=== PATIENT | female | born 1955 | race Caucasian/White ===

== ENCOUNTER 2016-10-14 15:55 | Emergency (ER) | payer MEDICARE ==
[~2016-10-14] VITALS: Ht 154.9 cm; Wt 100.7 kg
--- NOTE | 2016-10-14 17:12 | RAD ---
Indication leg pain. Grayscale color Doppler and spectral imaging was performed. Examination was targeted to the veins of the left lower extremity. The common femoral, femoral and popliteal vessels demonstrate normal flow compressibility and augmentation. No thrombus is seen. Visualized calf veins appeared unremarkable. The right common femoral vein also appeared normal. IMPRESSION: Negative left lower extremity venous analysis for DVT
[2016-10-14] MEDS ORDERED: BUDE3CAP2 PO (17:35)
[2016-10-14] MEDS ORDERED: HYDR25TA9 PO (17:37)
[2016-10-14] MEDS ORDERED: PARO20TA2 PO (17:37)
[2016-10-14] MEDS ORDERED: CHOL2000 PO (17:40)
[2016-10-14] MEDS ORDERED: MAGN250T PO (17:40)
[2016-10-14] MEDS ORDERED: B&C/1TAB2 PO (17:40)
[2016-10-14] MEDS ORDERED: [UNRECOGNIZED DRUG - OTHER] (17:40)
[2016-10-14] MEDS ORDERED: OREG1500 PO (17:40)
[2016-10-14 17:47] VITALS: BP 127/72
--- NOTE | 2016-10-14 18:00 | PHYS DOC ---
Past Medical History Past Medical History: Anxiety, Other Additional Past Medical Histor: Psoriatic arthritis Past Surgical History: , Other Additional Past Surgical Histo: D&C x5,Miscarriage x3,Kidney stones Alcohol Use: None Drug Use: None Adult General Chief Complaint Chief Complaint: LOWER EXT PAIN [facility] HPI 61-year-old female who presents with some left upper 5 swelling that's been there for the last several days. Patient was seen by her primary doctor for this and recommended to follow with vascular surgery as well as come to the ER for a ultrasound. She denies any history of DVT. She does state she has history of lupus for which she is on the biologic therapy with Humira. She denies any chest pain or shortness of breath. She denies any redness to the area. She denies any trauma. Review of Systems Review of Systems Constitutional: Denies fever or chills [] Eyes: Denies change in visual acuity, redness, or eye pain [] HENT: Denies nasal congestion or sore throat [] Respiratory: Denies cough or shortness of breath [] Cardiovascular: No additional information not addressed in HPI [] GI: Denies abdominal pain, nausea, vomiting, bloody stools or diarrhea [] : Denies dysuria or hematuria [] Musculoskeletal: Denies back pain, has joint pain [] Integument: Denies rash or skin lesions [] Neurologic: Denies headache, focal weakness or sensory changes [] Endocrine: Denies polyuria or polydipsia [] Allergies Allergies Allergies Coded Allergies Type Severity Reaction Last Updated Verified NSAIDS (Non-Steroidal Anti-Inflamma Allergy Severe Throat swells, Hives. Yes Penicillins Allergy Severe Throat swells. 10/14/16 Yes Sulfa (Sulfonamide Antibiotics) Allergy Severe Throat swells. 10/14/16 Yes aspirin Allergy Severe Throat swells. 10/14/16 Yes Estrogens Allergy Intermediate "hormone replacement therapy", rash, pain all over 10/14/16 No codeine Allergy Unknown Increased HR 10/14/16 Yes Physical Exam Physical Exam Constitutional: Well developed, well nourished, no acute distress, non-toxic appearance. [] HENT: Normocephalic, atraumatic, bilateral external ears normal, oropharynx moist, no oral exudates, nose normal. [] Eyes: PERRLA, EOMI, conjunctiva normal, no discharge. [] Neck: Normal range of motion, no tenderness, supple, no stridor. [] Cardiovascular:Heart rate regular rhythm, no murmur [] Lungs & Thorax: Bilateral breath sounds clear to auscultation [] Abdomen: Bowel sounds normal, soft, no tenderness, no masses, no pulsatile masses. [] Skin: Warm, dry, no erythema, no rash. [] Back: No tenderness, no CVA tenderness. [] Extremities: Moderate tenderness to the left upper thigh with a noted area of swelling, there is no redness or fluctuance, no cyanosis, no clubbing, ROM intact, no edema. [] Neurologic: Alert and oriented X 3, normal motor function, normal sensory function, no focal deficits noted. [] Psychologic: Affect normal, judgement normal, mood normal. [] Current Patient Data Vital Signs Vital Signs Date Time Temp Pulse Resp B/P Pulse Ox O2 Delivery O2 Flow Rate FiO2 10/14/16 17:47 84 18 127/72 97 Room Air 10/14/16 16:25 98.1 98.1 EKG EKG [] Radiology/Procedures Radiology/Procedures Left lower extremity venous doppler demonstrated the following: Grayscale color Doppler and spectral imaging was performed. Examination was targeted to the veins of the left lower extremity. The common femoral, femoral and popliteal vessels demonstrate normal flow compressibility and augmentation. No thrombus is seen. Visualized calf veins appeared unremarkable. The right common femoral vein also appeared normal. Course & Med Decision Making Course & Med Decision Making Pertinent Labs and Imaging studies reviewed. (See chart for details) 61-year-old female had a negative venous Doppler of her left lower extremity for any acute DVT. There is no evidence of any cellulitis. There is no indication at this time to perform any laboratory workup. I will be discharging her to follow closely with her primary doctor and delivery consultant for further workup for her upper thigh swelling. Dragon Disclaimer Dragon Disclaimer This electronic medical record was generated, in whole or in part, using a voice recognition dictation system. Departure Departure Impression: Primary Impression: Left leg swelling Disposition: HOME, SELF-CARE Condition: STABLE Referrals: JONO CATHERINE (PCP) Additional Instructions: Please follow with your delivery consultant as discussed and your primary care doctor for your lower extremity swelling. Continue taking your medications as prescribed. Return to the ER if you develop any increased redness or pain or develop any chest pain or shortness of breath. ISI HICKMAN DO Oct 14, 2016 18:00
== END 2016-10-14 18:04 | disposition home or self-care (01) ==
LOC: ER 15:55
DX: M79.89 Other specified soft tissue disorders (principal); M32.9 Systemic lupus erythematosus, unspecified; F41.9 Anxiety disorder, unspecified; L40.50 Arthropathic psoriasis, unspecified; Z88.0 Allergy status to penicillin; Z88.6 Allergy status to analgesic agent; Z88.5 Allergy status to narcotic agent; Z88.2 Allergy status to sulfonamides; Z88.8 Allergy status to other drugs, medicaments and biological substances
CPT/HCPCS: 93971; 99284-25

== ENCOUNTER 2016-12-15 15:27 | Emergency (ER) | payer MEDICARE ==
[~2016-12-15] VITALS: Ht 154.9 cm; Wt 100.7 kg
[~2016-12-15 15:27] MED LIST: B&C/1TAB2 PO; BUDE3CAP2 PO; CHOL2000 PO; HYDR25TA9 PO; MAGN250T PO; OREG1500 PO; PARO20TA3 PO; [UNRECOGNIZED DRUG - OTHER]
[2016-12-15 15:40] VITALS: BP 140/88
[2016-12-15] MEDS ORDERED: DOXY100C2 PO (15:56)
--- NOTE | 2016-12-15 15:59 | PHYS DOC ---
Past Medical History Past Medical History: Anxiety, Other Additional Past Medical Histor: Psoriatic arthritis Past Surgical History: , Other Additional Past Surgical Histo: D&C x5,Miscarriage x3,Kidney stones Alcohol Use: None Drug Use: None Adult General Chief Complaint Chief Complaint: ANIMAL BITE [facility] HPI Patient is a 61 year old female presents to the emergency department stating at 1500 today her 3 month old puppy bit her on the right hand. Patient states the puppies immunizations are up to date. She states has very thin skin and the bite is very close to the vein and she was worried about bleeding. She is unsure when her last tetanus immunization occurred. Patient denies numbness, tingling, or difficulty moving hand and fingers. Bleeding is currently controlled. Patient is left hand dominant. Review of Systems Review of Systems Constitutional: Denies fever or chills [] Eyes: Denies change in visual acuity, redness, or eye pain [] HENT: Denies nasal congestion or sore throat [] Respiratory: Denies cough or shortness of breath [] Cardiovascular: No additional information not addressed in HPI [] GI: Denies abdominal pain, nausea, vomiting, bloody stools or diarrhea [] : Denies dysuria or hematuria [] Musculoskeletal: Denies back pain or joint pain [] Integument: Denies rash or skin lesions. Dog bite to right hand Neurologic: Denies headache, focal weakness or sensory changes [] Current Medications Current Medications Current Medications Medications (Trade) Dose Ordered Sig/Nakul Start Time Stop Time Status Last Admin Dose Admin Diphtheria/ Tetanus/Acell Pertussis (Boostrix) 0.5 ml ONCE ONCE 12/15/16 16:00 12/15/16 16:01 DC 12/15/16 16:19 0.5 ML Neomycin/ Polymyxin/ Bacitracin (Triple Antibiotic Ointment) 1 pkt 1X ONCE 12/15/16 16:00 12/15/16 16:01 DC 12/15/16 16:16 1 PKT Allergies Allergies Allergies Coded Allergies Type Severity Reaction Last Updated Verified NSAIDS (Non-Steroidal Anti-Inflamma Allergy Severe Throat swells, Hives. Yes Penicillins Allergy Severe Throat swells. 10/14/16 Yes Sulfa (Sulfonamide Antibiotics) Allergy Severe Throat swells. 10/14/16 Yes aspirin Allergy Severe Throat swells. 10/14/16 Yes Estrogens Allergy Intermediate "hormone replacement therapy", rash, pain all over 10/14/16 No codeine Allergy Unknown Increased HR 10/14/16 Yes Physical Exam Physical Exam Constitutional: Well developed, well nourished, no acute distress, non-toxic appearance. [] HENT: Normocephalic, atraumatic, bilateral external ears normal, oropharynx moist, no oral exudates, nose normal. [] Eyes: PERRLA, EOMI, conjunctiva normal, no discharge. [] Neck: Normal range of motion, no tenderness, supple, no stridor. [] Cardiovascular:Heart rate regular rhythm, no murmur [] Lungs & Thorax: Bilateral breath sounds clear to auscultation [] Skin: Warm, dry, no erythema, no rash. One wound noted to the back of the right hand with bleeding controlled. No tenderness, redness or drainage noted. Back: No tenderness Extremities: No tenderness, no cyanosis, no clubbing, ROM intact, no edema. [] Neurologic: Alert and oriented X 3, normal motor function, normal sensory function, no focal deficits noted. [] Psychologic: Affect normal, judgement normal, mood normal. [] Current Patient Data Vital Signs Vital Signs Date Time Temp Pulse Resp B/P Pulse Ox O2 Delivery O2 Flow Rate FiO2 12/15/16 15:40 98.1 98 16 95 Room Air 98.1 EKG EKG [] Radiology/Procedures Radiology/Procedures [facility] [address] [place] [address] IMAGING REPORT Signed PATIENT: BECCA WASHINGTON ACCOUNT: [id number] : 1955 LOCATION: ER AGE: 61 SEX: F EXAM STATUS: REG ER ORD. PHYSICIAN: JENNIFER CASTRO APRN REASON: dog bite to the hand at 1500 today PROCEDURE: HAND RIGHT 3V Right hand, 3 views, 12/15/2016: History: Dog bite, pain There are degenerative changes at scattered interphalangeal joints and the first CMC joint. No acute fracture or dislocation is identified.. The soft tissues are unremarkable. IMPRESSION: No acute bony abnormality is detected. DICTATED and SIGNED BY: JOSE SEPULVEDA MD DATE: 12/15/16 1616 CC: JENNIFER CASTRO APRN; JONO CATHERINE ~ [] Course & Med Decision Making Course & Med Decision Making Pertinent Labs and Imaging studies reviewed. (See chart for details) Shunt x-ray was negative for any bony abnormalities no foreign body noted. Site was cleaned with soap and water irrigated with water here in the emergency department with antibiotic ointment placed over the area. Tetanus was updated. Patient will be placed on antibiotics at discharged. Signs and symptoms of infection provided to patient. Signs and symptoms to return to the emergency department has been provided. Patient will be discharged home in stable condition. [] Dragon Disclaimer Dragon Disclaimer This electronic medical record was generated, in whole or in part, using a voice recognition dictation system. Departure Departure Impression: Primary Impression: Dog bite of right hand Disposition: HOME, SELF-CARE Condition: STABLE Referrals: JONO CATHERINE (PCP) Patient Instructions: Animal Bite, [id number] Additional Instructions: Activity as tolerated Tylenol for pain and discomfort Medication as prescribed Ice packs on 20 minutes and off 20 minutes several times a day Elevation as much as possible Clean the site with soap and water twice a day and apply antibiotic to the site Watch for signs and symptoms of infection: redness, warmth, tenderness or any any yellow/greenish drainage that may come the site. If this should happen follow up with primary care provider immediately Return to the emergency department as needed for signs and symptoms that become worse. Scripts Doxycycline Hyclate 100 Mg Capsule1 Cap PO BID #14 CAP Prov:JENNIFER CASTRO APRN 12/15/16 JENNIFER CASTRO APRN Dec 15, 2016 15:59
[2016-12-15] MEDS ORDERED: NEOMY/BACITR/POLYMYXIN OINT PACKET. TP ONE (16:00)
[2016-12-15] MEDS ORDERED: DIPHTH,PERTUSS(ACELL),TET TOX 0.5 ML DISP.SYRIN. VAX IM ONE (16:00)
--- NOTE | 2016-12-15 16:20 | RAD ---
Right hand, 3 views, 12/15/2016: History: Dog bite, pain There are degenerative changes at scattered interphalangeal joints and the first CMC joint. No acute fracture or dislocation is identified.. The soft tissues are unremarkable. IMPRESSION: No acute bony abnormality is detected.
== END 2016-12-15 16:25 | disposition home or self-care (01) ==
LOC: ER 15:27
DX: S61.451A Open bite of right hand, initial encounter (principal); L40.50 Arthropathic psoriasis, unspecified; Z88.0 Allergy status to penicillin; Z88.2 Allergy status to sulfonamides; W54.0XXA Bitten by dog, initial encounter; Y93.89 Activity, other specified; Y99.8 Other external cause status; Y92.89 Other specified places as the place of occurrence of the external cause
CPT/HCPCS: 73130; 90471; 90715; 99284-25

== ENCOUNTER 2019-03-06 12:29 | Emergency (ER) | payer MEDICARE ==
[~2019-03-06] VITALS: Ht 167.6 cm; Wt 100.7 kg
[~2019-03-06 12:29] MED LIST changes: +DOXY100C2 PO; +HYDR-2145 PO; -HYDR25TA9 PO; -MAGN250T PO; +MAGN250T2 PO
[2019-03-06] MEDS ORDERED: IV NORMAL SALINE 1000ML BAG 1,000 ML IV ONE (13:30)
[2019-03-06] MEDS ORDERED: DICYCLOMINE 20 MG/2 ML AMPUL. IM ONE (13:30)
[2019-03-06] MEDS ORDERED: fentaNYL PF VIAL 100 MCG/2 ML VIAL IV ONE (13:30)
[2019-03-06] MEDS ORDERED: ONDANSETRON PF 4 MG/2 ML VIAL. IV ONE ×2 (13:30→17:15)
--- NOTE | 2019-03-06 13:36 | PHYS DOC ---
Past Medical History Past Medical History: Anxiety, Other Additional Past Medical Histor: Psoriatic arthritis Past Surgical History: , Other Additional Past Surgical Histo: D&C x5,Miscarriage x3,Kidney stones Alcohol Use: None Drug Use: None Adult General Chief Complaint Chief Complaint: NAUSEA/VOMITING/[facility] HPI 63-year-old female presents to ER for complaints of sudden onset of vomiting and diarrhea around 12 AM. Patient reports she's had multiple episodes of vomiting and diarrhea throughout today. She denies bloody stools or emesis. She felt feverish but is currently afebrile at 98.3. 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 Patient denies other family members with similar illness but does report her dog had Giardia week and a half ago. Patient reports mid epigastric abdominal pain at 5 out of 10 denies pain radiation. Patient denies recent travel. Patient denies smoking or alcohol history. Patient reports she is scheduled for colonoscopy 04/12/19. Review of Systems Review of Systems Constitutional: Reports felt feverish with generalized fatigue Eyes: Denies change in visual acuity, redness, or eye pain [] HENT: Denies nasal congestion or sore throat [] Respiratory: Denies cough or shortness of breath [] Cardiovascular: Denies chest pain or palpitations GI: Denies bloody stools/emesis. Reports mid epig. abd pain with N/V/D : Denies dysuria or hematuria [] Musculoskeletal: Denies back pain or joint pain [] Integument: Denies rash or skin lesions [] Neurologic: Denies headache, focal weakness or sensory changes [] Endocrine: Denies polyuria or polydipsia [] All other systems were reviewed and found to be within normal limits, except as documented in this note. Current Medications Current Medications Current Medications Medications (Trade) Dose Ordered Sig/Nakul Start Time Stop Time Status Last Admin Dose Admin Dicyclomine HCl (Bentyl) 20 mg 1X ONCE 03/06/19 13:30 03/06/19 13:34 DC 03/06/19 14:43 20 MG Fentanyl Citrate (Fentanyl 2ml Vial) 25 mcg 1X ONCE 03/06/19 13:30 03/06/19 13:34 DC 03/06/19 14:43 25 MCG Info (CONTRAST GIVEN -- Rx MONITORING) 1 each PRN DAILY PRN 03/06/19 16:45 03/08/19 16:44 Iohexol (Omnipaque 300 Mg/ml) 75 ml 1X ONCE 03/06/19 16:45 03/06/19 16:46 DC 03/06/19 16:44 75 ML Ondansetron HCl (Zofran) 4 mg 1X ONCE 03/06/19 17:15 03/06/19 17:16 DC Sodium Chloride 500 ml @ 500 mls/hr 1X ONCE 03/06/19 16:15 03/06/19 17:14 DC 03/06/19 16:36 500 MLS/HR Allergies Allergies Allergies Coded Allergies Type Severity Reaction Last Updated Verified NSAIDS (Non-Steroidal Anti-Inflamma Allergy Severe Throat swells, Hives. 10/14/16 Yes Penicillins Allergy Severe Throat swells. 10/14/16 Yes Sulfa (Sulfonamide Antibiotics) Allergy Severe Throat swells. 10/14/16 Yes aspirin Allergy Severe Throat swells. 10/14/16 Yes Estrogens Allergy Intermediate "hormone replacement therapy", rash, pain all over 10/14/16 No codeine Allergy Unknown Increased HR 10/14/16 Yes Physical Exam Physical Exam Constitutional: Well developed, well nourished, no acute distress, non-toxic appearance. Fatigued appearance HENT: Normocephalic, atraumatic, bilateral external ears normal, mucous membranes pink/dry, no oral exudates, nose normal. [] Eyes: Pupils equal, conjunctiva normal, no discharge. [] Neck: Normal range of motion, no tenderness, supple, no stridor. [] Cardiovascular: Heart rate regular rhythm, no murmur [] Lungs & Thorax: Bilateral breath sounds clear to auscultation- resp. equal/nonlabored Abdomen: Bowel sounds normal, soft-no distention/rigidity- diffuse tenderness all abd w/increased pain lt side upper/rt lower, no masses, no pulsatile masses. [] Skin: Warm, dry, no erythema, no rash. [] Back: No tenderness, no CVA tenderness. [] Extremities: No tenderness, no cyanosis, no clubbing, ROM intact, no edema. [] Neurologic: Alert and oriented X 3, normal motor function, normal sensory function, no focal deficits noted. [] Psychologic: Affect normal, judgement normal, mood normal. [] Current Patient Data Vital Signs Vital Signs Date Time Temp Pulse Resp B/P (MAP) Pulse Ox O2 Delivery O2 Flow Rate FiO2 03/06/19 16:40 101 27 106/51 (69) 96 Room Air 03/06/19 13:30 98.3 98.3 Lab Values Laboratory Tests Test 03/06/19 14:35 White Blood Count 7.9 x10^3/uL (4.0-11.0) Red Blood Count 4.56 x10^6/uL (3.50-5.40) Hemoglobin 13.9 g/dL (12.0-15.5) Hematocrit 41.0 % (36.0-47.0) Mean Corpuscular Volume 90 fL (79-100) Mean Corpuscular Hemoglobin 31 pg (25-35) Mean Corpuscular Hemoglobin Concent 34 g/dL (31-37) Red Cell Distribution Width 13.9 % (11.5-14.5) Platelet Count 264 x10^3/uL (140-400) Neutrophils (%) (Auto) 89 % (31-73) H Lymphocytes (%) (Auto) 4 % (24-48) L Monocytes (%) (Auto) 7 % (0-9) Eosinophils (%) (Auto) 0 % (0-3) Basophils (%) (Auto) 0 % (0-3) Neutrophils # (Auto) 7.0 x10^3uL (1.8-7.7) Lymphocytes # (Auto) 0.3 x10^3/uL (1.0-4.8) L Monocytes # (Auto) 0.5 x10^3/uL (0.0-1.1) Eosinophils # (Auto) 0.0 x10^3/uL (0.0-0.7) Basophils # (Auto) 0.0 x10^3/uL (0.0-0.2) Segmented Neutrophils % 89 % (35-66) H Band Neutrophils % 1 % (0-9) Lymphocytes % 5 % (24-48) L Monocytes % 5 % (0-10) Platelet Estimate Adequate (ADEQUATE) Polychromasia Slight Anisocytosis Slight Sodium Level 141 mmol/L (136-145) Potassium Level 3.5 mmol/L (3.5-5.1) Chloride Level 104 mmol/L (98-107) Carbon Dioxide Level 27 mmol/L (21-32) Anion Gap 10 (6-14) Blood Urea Nitrogen 13 mg/dL (7-20) Creatinine 0.4 mg/dL (0.6-1.0) L Estimated GFR (Cockcroft-Gault) 160.7 BUN/Creatinine Ratio 33 (6-20) H Glucose Level 107 mg/dL (70-99) H Lactic Acid Level 0.9 mmol/L (0.4-2.0) Calcium Level 8.7 mg/dL (8.5-10.1) Magnesium Level 1.8 mg/dL (1.8-2.4) Total Bilirubin 0.5 mg/dL (0.2-1.0) Aspartate Amino Transferase (AST) 15 U/L (15-37) Alanine Aminotransferase (ALT) 23 U/L (14-59) Alkaline Phosphatase 67 U/L (46-116) Troponin I Quantitative < 0.017 ng/mL (0.000-0.055) Total Protein 6.5 g/dL (6.4-8.2) Albumin 3.3 g/dL (3.4-5.0) L Albumin/Globulin Ratio 1.0 (1.0-1.7) Lipase 63 U/L (73-393) L Laboratory Tests 03/06/19 14:35 Laboratory Tests 03/06/19 14:35 EKG EKG EKG obtained 03/06/19 at [address] Villarreal Sinus rhythm Ltward axis Nonspec. T wave abnorm Rate 95 No STEMI Radiology/Procedures Radiology/Procedures PROCEDURE: CT ABD PELV W/ IV CONTRST ONLY CT ABD PELV W/ IV CONTRST ONLY Indication: Abdominal pain. History of colitis. Exposure: One or more of the following individualized dose reduction techniques were utilized for this examination: 1. Automated exposure control 2. Adjustment of the mA and/or kV according to patient size 3. Use of iterative reconstruction technique. Technique: Intravenous contrast was given. No oral contrast per request. No comparison is barely available FINDINGS: Mild atelectasis or fibrosis in the lung bases. Right lobe of liver is elongated, 20 cm. No focal hepatic lesion. Spleen not enlarged. Pancreas appears unremarkable. No evidence of adrenal mass. Kidneys demonstrate symmetric enhancement. Hypodense lesions of the left kidney are identified. All 3 measure between 13 and 15 Hounsfield units. No significant hydronephrosis. Tiny right renal lesion is too small to characterize. Tiny nonobstructive right lower pole renal calculus. Gallbladder surgically absent. Aorta demonstrates no aneurysm or dissection. No significant lymph node enlargement. Mild distention of small bowel loops with fluid. There is also fluid density in the colon. No evidence of colonic wall thickening or pericolonic inflammatory stranding to suggest an acute colitis. Appendix is not clearly visualized. No evidence of ascites or pneumoperitoneum. No evidence of pelvic mass. Urinary bladder appears unremarkable. Degenerative spondylosis of the spine. No destructive bone lesion. IMPRESSION: 1. Mild fluid distention of bowel, may represent an ileus. No convincing evidence of obstruction or colitis at this time. Recommend follow-up abdominal radiographs or CT if symptoms persist. 2. No mild hepatomegaly. 3. Multiple renal lesions, the larger of which are consistent with cysts. 4 tiny nonobstructive right renal calculus.. Electronically signed by: Pako Felix MD (03/06/2019 5:04 PM) [id number] DICTATED and SIGNED BY: PAKO FELIX MD DATE: 03/06/19 170 Course & Med Decision Making Course & Med Decision Making Pertinent Labs and Imaging studies reviewed. (See chart for details) 1710: Discussed CT results with patient and her . Admission was discussed and offered for further care and monitoring-patient is preferring home discharge with plans to follow-up with her GI doctor outpatient for reevaluation and further care. Dragon Disclaimer Dragon Disclaimer This electronic medical record was generated, in whole or in part, using a voice recognition dictation system. Departure Departure Impression: Primary Impression: Abdominal pain, vomiting, and diarrhea Disposition: 01 HOME, SELF-CARE Condition: STABLE Referrals: JONO CATHERINE (PCP) Patient Instructions: Abdominal Pain, Diarrhea, Nausea and Vomiting Additional Instructions: Drink plenty of fluids. Advance diet as tolerated. Call and schedule follow-up appointment with your gastrointestinal doctor for reevaluation and further care. Scripts Dicyclomine Hcl (DICYCLOMINE HCL) 10 Mg Capsule 1 CAP PO PRN Q6HRS PRN for PAIN, #12 CAP 0 Refills Prov: QUEKadeemINDIO SPECIAL PROCEDURE TECHNOLOGIST 03/06/19 Ondansetron (ONDANSETRON ODT) 4 Mg Tab.rapdis 1 TAB PO PRN Q6-8HRS PRN for NAUSEA, #10 TAB 0 Refills Prov: INDIO SALMON APRN 03/06/19 INDIO SALMON APRN Mar 06, 2019 13:36
--- NOTE | 2019-03-06 14:30 | EKG ---
[facility] [address] [place] [address] Test Date: 2019-03-06 Test Time: 13:50:48 Pat Name: BECCA WASHINGTON Department: Room: Gender: F Milling Machine Operator: : 1955 Requested By: INDIO SALMON Order Number: [id number] Reading MD: Measurements Intervals [place] Rate: 94 P: 55 AL: 160 QRS: -19 QRSD: 96 T: 36 QT: 358 QTc: 453 Interpretive Statements SINUS RHYTHM LEFTWARD AXIS NON SPECIFIC T ABNORMALITY BORDERLINE ECG No previous ECG available for comparison
[2019-03-06 14:48] LABS: BASO % 0 % (0-3); EOS % 0 % (0-3); HEMOGLOBIN 13.9 g/dL (12.0-15.5); LYMPH # 0.3 x10^3/uL (1.0-4.8); LYMPH % 4 % (24-48); MEAN CORPUSCULAR HEMOGLOBIN 31 pg (25-35); MEAN CORPUSCULAR HGB CONC 34 g/dL (31-37); MEAN CORPUSCULAR VOLUME 90 fL (79-100); MONO # 0.5 x10^3/uL (0.0-1.1); MONO % 7 % (0-9); NEUT % 89 % (31-73); PLATELET COUNT 264 x10^3/uL (140-400); RED BLOOD COUNT 4.56 x10^6/uL (3.50-5.40); RED CELL DISTRIBUTION WIDTH 13.9 % (11.5-14.5); WHITE BLOOD COUNT 7.9 x10^3/uL (4.0-11.0)
[2019-03-06 15:03] LABS: CALCIUM 8.7 mg/dL (8.5-10.1); CREATININE 0.4 mg/dL (0.6-1.0); GFR 160.7; POTASSIUM 3.5 mmol/L (3.5-5.1)
[2019-03-06 15:09] LABS: ALBUMIN 3.3 g/dL (3.4-5.0); MAGNESIUM 1.8 mg/dL (1.8-2.4); TOTAL BILIRUBIN 0.5 mg/dL (0.2-1.0); TOTAL PROTEIN 6.5 g/dL (6.4-8.2)
[2019-03-06] MEDS ORDERED: IV NORMAL SALINE 500ML BAG 500 ML IV ONE (16:15)
[2019-03-06 16:20] LABS: % BANDS 1 % (0-9); % LYMPHS 5 % (24-48); % MONOS 5 % (0-10); % SEGS 89 % (35-66)
[2019-03-06 16:21] LABS: ANISOCYTOSIS SLIGHT; PLT ESTIMATE ADEQUATE (ADEQUATE); POLYCHROMASIA SLIGHT
[2019-03-06] MEDS ORDERED: IOHEXOL 300 MG/ML 100ML VIAL. IV ONE (16:45)
[2019-03-06] MEDS ORDERED: CONTRAST GIVEN. MC PRN (16:45)
--- NOTE | 2019-03-06 17:07 | RAD ---
CT ABD PELV W/ IV CONTRST ONLY Indication: Abdominal pain. History of colitis. Exposure: One or more of the following individualized dose reduction techniques were utilized for this examination: 1. Automated exposure control 2. Adjustment of the mA and/or kV according to patient size 3. Use of iterative reconstruction technique. Technique: Intravenous contrast was given. No oral contrast per request. No comparison is barely available FINDINGS: Mild atelectasis or fibrosis in the lung bases. Right lobe of liver is elongated, 20 cm. No focal hepatic lesion. Spleen not enlarged. Pancreas appears unremarkable. No evidence of adrenal mass. Kidneys demonstrate symmetric enhancement. Hypodense lesions of the left kidney are identified. All 3 measure between 13 and 15 Hounsfield units. No significant hydronephrosis. Tiny right renal lesion is too small to characterize. Tiny nonobstructive right lower pole renal calculus. Gallbladder surgically absent. Aorta demonstrates no aneurysm or dissection. No significant lymph node enlargement. Mild distention of small bowel loops with fluid. There is also fluid density in the colon. No evidence of colonic wall thickening or pericolonic inflammatory stranding to suggest an acute colitis. Appendix is not clearly visualized. No evidence of ascites or pneumoperitoneum. No evidence of pelvic mass. Urinary bladder appears unremarkable. Degenerative spondylosis of the spine. No destructive bone lesion. IMPRESSION: 1. Mild fluid distention of bowel, may represent an ileus. No convincing evidence of obstruction or colitis at this time. Recommend follow-up abdominal radiographs or CT if symptoms persist. 2. No mild hepatomegaly. 3. Multiple renal lesions, the larger of which are consistent with cysts. 4 tiny nonobstructive right renal calculus.. Electronically signed by: Pako Felix MD (03/06/2019 5:04 PM) [id number]
[2019-03-06] MEDS ORDERED: ONDA4TAB12 PO (17:30)
[2019-03-06] MEDS ORDERED: DICY10CA3 PO (17:30)
[2019-03-06 17:34] VITALS: BP 110/47
== END 2019-03-06 17:39 | disposition home or self-care (01) ==
LOC: ER 12:29
DX: R11.2 Nausea with vomiting, unspecified (principal); R19.7 Diarrhea, unspecified; R10.13 Epigastric pain; L40.50 Arthropathic psoriasis, unspecified; F41.9 Anxiety disorder, unspecified; Z87.442 Personal history of urinary calculi; Z88.0 Allergy status to penicillin; Z88.2 Allergy status to sulfonamides; Z88.5 Allergy status to narcotic agent; Z88.6 Allergy status to analgesic agent; Z88.8 Allergy status to other drugs, medicaments and biological substances
CPT/HCPCS: 36415; 74177; 80053; 83605; 83690; 83735; 84484; 85007; 85025; 93005; 96361; 96372; 96374; 96375; 96376; 99285; J0500; J2405; J3010; J7030; J7040; Q9967

== ENCOUNTER 2019-05-22 17:42 | Emergency (ER) | payer MEDICARE ==
[~2019-05-22] VITALS: Ht 152.4 cm; Wt 93.9 kg
[~2019-05-22 17:42] MED LIST changes: +DICY10CA3 PO; +ONDA4TAB12 PO
[2019-05-22] MEDS ORDERED: MORPHINE SULFATE 4 MG/ML VIAL. IM STA (18:24)
--- NOTE | 2019-05-22 18:28 | PHYS DOC ---
Past Medical History Past Medical History: Anxiety, Other Additional Past Medical Histor: Psoriatic arthritis, LUPUS, MICROSCOPIC COLOLITIS Past Surgical History: , Other Additional Past Surgical Histo: D&C x5,Miscarriage x3,Kidney stones Alcohol Use: None Drug Use: None Adult General Chief Complaint Chief Complaint: MECHANICAL FALL HPI HPI Patient is a 63 year old female who presents after tripping over some books partially 1.5 hours ago. The patient states she's having right arm pain from shoulder down to wrist, and right knee pain. The patient rates her pain as 10 out of 10 severity. Has not taken any medicines prior to arrival. Review of Systems Review of Systems Constitutional: Denies fever or chills [] Eyes: Denies change in visual acuity, redness, or eye pain [] HENT: Denies nasal congestion or sore throat [] Respiratory: Denies cough or shortness of breath [] Cardiovascular: No additional information not addressed in HPI [] GI: Denies abdominal pain, nausea, vomiting, bloody stools or diarrhea [] : Denies dysuria or hematuria [] Musculoskeletal: R knee pain, R shoulder pain. Integument: Denies rash or skin lesions [] Neurologic: Denies headache, focal weakness or sensory changes [] Endocrine: Denies polyuria or polydipsia [] Complete systems were reviewed and found to be within normal limits, except as documented in this note. Current Medications Current Medications Current Medications Medications (Trade) Dose Ordered Sig/[facility] Start Time Stop Time Status Last Admin Dose Admin Morphine Sulfate (Morphine Sulfate) 10 mg 1X STAT 05/22/19 18:24 05/22/19 18:27 DC 05/22/19 18:47 10 MG Allergies Allergies Allergies Coded Allergies Type Severity Reaction Last Updated Verified NSAIDS (Non-Steroidal Anti-Inflamma Allergy Severe Throat swells, Hives. 10/14/16 Yes Penicillins Allergy Severe Throat swells. 10/14/16 Yes Sulfa (Sulfonamide Antibiotics) Allergy Severe Throat swells. 10/14/16 Yes aspirin Allergy Severe Throat swells. 10/14/16 Yes Estrogens Allergy Intermediate "hormone replacement therapy", rash, pain all over 10/14/16 No codeine Allergy Unknown Increased HR 10/14/16 Yes Physical Exam Physical Exam Constitutional: Well developed, well nourished, no acute distress, non-toxic appearance. [] HENT: Normocephalic, atraumatic, bilateral external ears normal, oropharynx moist, no oral exudates, nose normal. [] Eyes: PERRLA, EOMI, conjunctiva normal, no discharge. [] Neck: Normal range of motion, no tenderness, supple, no stridor. [] Cardiovascular:Heart rate regular rhythm, no murmur [] Lungs & Thorax: Bilateral breath sounds clear to auscultation [] Abdomen: Bowel sounds normal, soft, no tenderness, no masses, no pulsatile masses. [] Skin: Warm, dry, no erythema, no rash. [] Back: No tenderness, no CVA tenderness. [] Extremities: tenderness to R knee, shoulder, humerus, and forearm. Neurologic: Alert and oriented X 3, normal motor function, normal sensory fu nction, no focal deficits noted. [] Psychologic: Affect normal, judgement normal, mood normal. [] Current Patient Data Vital Signs Vital Signs Date Time Temp Pulse Resp B/P (MAP) Pulse Ox O2 Delivery O2 Flow Rate FiO2 05/22/19 18:47 18 Room Air 05/22/19 18:35 97.3 76 129/70 (89) 96 97.3 EKG EKG [] Radiology/Procedures Radiology/Procedures Signed PATIENT: BECCA WASHINGTON ACCOUNT: [id number] : 1955 LOCATION: ER AGE: 63 SEX: F EXAM STATUS: REG ER ORD. PHYSICIAN: MARILYNN RUFFIN APRN REASON: fall PROCEDURE: HUMERUS RIGHT SHOULDER 2+V RIGHT, HUMERUS RIGHT, FOREARM RIGHT, ELBOW RIGHT 2V, KNEE RIGHT 3V History: Fall Comparison: None. Right shoulder: 2 views of the right shoulder are submitted. There is a vertically oriented somewhat displaced fracture of the lateral aspect of the right proximal humerus to involve the greater tuberosity extending to the proximal right humeral neck. Right femoral head articulates normally with the glenoid. IMPRESSION: 1. There is somewhat displaced vertically oriented fracture of the proximal right humerus to involve the greater tuberosity. Right humerus: 2 views of the right humerus are submitted. There is again proximal right humerus fracture involving the greater tuberosity. No distal right humerus fracture is identified. IMPRESSION: 1. There is no distal right humerus fracture, again proximal right humerus fracture to involve greater tuberosity. Right elbow: 2 views right elbow are submitted. No acute fracture or dislocation is identified by radiographs. IMPRESSION: 1. No acute fracture is identified of the right elbow. Right forearm: 2 views of the right forearm are submitted. No acute fracture or dislocation is identified. Impression 1. No acute fracture is identified of the right forearm. Right knee: 3 views of the right knee are submitted. No acute fracture or dislocation is identified by radiographs. There is no significant suprapatellar joint effusion. IMPRESSION: 1. No acute radiographic abnormality is identified of the right knee. Electronically signed by: Saulo Enciso MD (05/22/2019 8:05 PM) [facility] DICTATED and SIGNED BY: SAULO ENCISO MD DATE: 05/22/192004 Course & Med Decision Making Course & Med Decision Making Pertinent Labs and Imaging studies reviewed. (See chart for details) Will give morphine, and get imaging. Imaging shows humeral fracture. Showed and discussed imaging with Dr. Cheng, ER attending. Will place patient in sling and discharge home to follow up with Ortho this week. Dragon Disclaimer Dragon Disclaimer This electronic medical record was generated, in whole or in part, using a voice recognition dictation system. Departure Departure Impression: Primary Impression: Fall Additional Impression: Humeral head fracture Disposition: 01 HOME, SELF-CARE Condition: STABLE Referrals: JONO CATHERINE (PCP) MARBELLA PUENTES MD Patient Instructions: Humerus Fracture, Treated with Immobilization Additional Instructions: Thank you for visiting [facility]. We appreciate you trusting us with your care. If any additional problems come up don't hesitate to return to visit us. Please follow up with your primary care provider so they can plan additional care if needed and know about the problem that you had. If symptoms worsen come back to the Emergency Department. Any concerning symptoms that start such as chest pain, shortness of air, weakness or numbness on one side of the body, running high fevers or any other concerning symptoms return to the ER. Please fill your medications at any pharmacy and follow the prescription instructions. Please follow up with Dr. Puentes with Ortho this week. Scripts Hydrocodone/Apap 5-325 (NORCO 5-325 TABLET) 1 Each Tablet 1 TAB PO PRN Q6HRS PRN for PAIN for 3 Days, #10 TAB 0 Refills Prov: MARILYNN RUFFIN APRN 05/22/19 Ondansetron (ONDANSETRON ODT) 4 Mg Tab.rapdis 1 TAB PO PRN Q6-8HRS PRN for NAUSEA, #16 TAB Prov: MARILYNN RUFFIN APRN 05/22/19 Problem Qualifiers Primary Impression: Fall Encounter type: initial encounter Qualified Codes: W19.XXXA - Unspecified fall, initial encounter Additional Impression: Humeral head fracture Encounter type: initial encounter Fracture type: closed Laterality: right Qualified Codes: S42.291A - Other displaced fracture of upper end of right humerus, initial encounter for closed fracture MARILYNN RUFFIN APRN May 22, 2019 18:28
[2019-05-22 18:35] VITALS: BP 129/70
[2019-05-22] MEDS ORDERED: ONDA4TAB12 PO (19:56)
[2019-05-22] MEDS ORDERED: HYDR-3164 PO (19:56)
--- NOTE | 2019-05-22 20:08 | RAD ---
SHOULDER 2+V RIGHT, HUMERUS RIGHT, FOREARM RIGHT, ELBOW RIGHT 2V, KNEE RIGHT 3V History: Fall Comparison: None. Right shoulder: 2 views of the right shoulder are submitted. There is a vertically oriented somewhat displaced fracture of the lateral aspect of the right proximal humerus to involve the greater tuberosity extending to the proximal right humeral neck. Right femoral head articulates normally with the glenoid. IMPRESSION: 1. There is somewhat displaced vertically oriented fracture of the proximal right humerus to involve the greater tuberosity. Right humerus: 2 views of the right humerus are submitted. There is again proximal right humerus fracture involving the greater tuberosity. No distal right humerus fracture is identified. IMPRESSION: 1. There is no distal right humerus fracture, again proximal right humerus fracture to involve greater tuberosity. Right elbow: 2 views right elbow are submitted. No acute fracture or dislocation is identified by radiographs. IMPRESSION: 1. No acute fracture is identified of the right elbow. Right forearm: 2 views of the right forearm are submitted. No acute fracture or dislocation is identified. Impression 1. No acute fracture is identified of the right forearm. Right knee: 3 views of the right knee are submitted. No acute fracture or dislocation is identified by radiographs. There is no significant suprapatellar joint effusion. IMPRESSION: 1. No acute radiographic abnormality is identified of the right knee. Electronically signed by: Armando Real MD (05/22/2019 8:05 PM) [facility]
== END 2019-05-22 20:30 | disposition home or self-care (01) ==
LOC: ER 17:42
DX: S42.291A Other displaced fracture of upper end of right humerus, initial encounter for closed fracture (principal); M25.561 Pain in right knee; F41.9 Anxiety disorder, unspecified; Z98.890 Other specified postprocedural states; Z87.442 Personal history of urinary calculi; Z88.8 Allergy status to other drugs, medicaments and biological substances; Z88.0 Allergy status to penicillin; Z88.2 Allergy status to sulfonamides; Z88.6 Allergy status to analgesic agent; Z88.5 Allergy status to narcotic agent; Z91.09 Other allergy status, other than to drugs and biological substances; W01.0XXA Fall on same level from slipping, tripping and stumbling without subsequent striking against object, initial encounter; Y93.89 Activity, other specified; Y92.89 Other specified places as the place of occurrence of the external cause; Y99.8 Other external cause status
CPT/HCPCS: 73030; 73060; 73070; 73090; 73562; 96372; 99284; J2270

== ENCOUNTER 2021-06-05 17:02 | Emergency (ER) | payer MEDICARE ==
[~2021-06-05 17:02] MED LIST changes: -DOXY100C2 PO; +DOXY100C3 PO; +HYDR-3164 PO
== END 2021-06-05 19:15 | disposition left against medical advice (07) ==
LOC: ER 17:02
DX: U07.1 COVID-19 (principal); E86.0 Dehydration; Z53.21 Procedure and treatment not carried out due to patient leaving prior to being seen by health care provider

== ENCOUNTER → 2022-02-12 | Day surgery (SDC) | payer MEDICARE ==
[~2022-02-12] VITALS: Ht 152.4 cm; Wt 101.0 kg
[~2022-02-12] MED LIST changes: +HYDR200T71 PO; +IV RINGERS,LACTATED 1000ML 1,000 ML IV SCH; +LIDOCAINE 2% PF 5 ML VIAL. ONE; -MAGN250T2 PO; +MAGN250T4 PO; +MORPHINE SULFATE 2 MG/ML INJ. IVP PRN; +PRED5TAB PO; +PROCHLORPERAZINE 10 MG/2 ML VIAL. IVP PRN; +PROPOFOL 10 MG/ML (20ML) VIAL. IV ONE; +fentaNYL PF VIAL 100 MCG/2 ML VIAL IVP PRN
[2022-02-12 09:52] VITALS: BP 147/70
[2022-02-12 11:05] VITALS: BP 147/70
--- NOTE | 2022-02-16 09:07 | PATHOLOGY ---
[facility] Accession Number: [id number] . 01 Material submitted: . PART A: small bowel - SMALL BOWEL BIOPSY PART B: stomach - ANTRUM AND BODY BIOPSY PART C: esophagus - DISTAL ESOPHAGUS BIOPSY PART D: colon - DESCENDING COLON POLYP PART E: cecum - CECAL POLYP PART F: colon - RIGHT COLON BIOPSY PART G: colon - TRANSVERSE COLON POLYP PART H: colon - LEFT COLON BIOPSY PART I: rectum - RECTAL POLYP . 01 Clinical history: . DIARRHEA, RUQ PAIN . 02 Diagnosis: A. Small bowel biopsies: - No diagnostic abnormalities. . B. Gastric biopsies, gastric antrum and gastric body: - Congestion and mild chronic inflammation. . C. Esophageal biopsies, distal esophagus: - Reflux changes. . D. Colon biopsy, descending colon polyp: - Prominent mucosal fold, with mild chronic active colitis suggestive of microscopic (lymphocytic) colitis. . E. Colon biopsies, cecal polyp: - Tubular adenoma. - Mild chronic active colitis suggestive of microscopic (lymphocytic) colitis. . F. Colon biopsies, right colon: - Mild chronic active colitis suggestive of microscopic (lymphocytic) colitis. . G. Colon biopsies, transverse colon polyp: - Prominent mucosal fold, with mild chronic active colitis suggestive of microscopic (lymphocytic) colitis. . H. Colon biopsies, left colon: - Mild chronic active colitis suggestive of microscopic (lymphocytic) colitis. . I. Colorectal biopsy, rectal polyp: - Hyperplastic polyp, chronically inflamed. (JPM/db; 02/13/2022) [facility] 02/16/2022 0853 Local . 02 Comment: Sections of the small bowel biopsy reveal segments of duodenal and small intestine mucosa. Where best oriented, the mucosal villi show no sprue-like changes or significant inflammatory changes. . Sections of the gastric biopsy reveal gastric antral and gastric body mucosa showing congestion and very mild chronic inflammation. An immunoperoxidase stain for Helicobacter is negative for Helicobacter organisms. . Sections of the distal esophageal biopsy reveal two segments of hyperplastic squamous esophageal mucosa and a single segment of gastric mucosa showing mild chronic inflammation. The findings are consistent with reflux changes. There is no evidence of Dolan's change, dysplasia, or malignancy. . Sections of the cecal polyp biopsy reveal a tubular adenoma showing no high grade dysplasia or evidence of malignancy. . Sections of the descending colon and transverse colon polyp biopsies reveal segments of colonic mucosa consistent with prominent mucosal fold. . Sections of the right colon and left colon biopsies, in addition to the cecal, descending colon, and transverse colon polyp biopsies, all show a mild chronic active colitis without crypt architectural distortion or collagen deposition suggestive of microscopic (lymphocytic) colitis. This diagnosis requires clinicopathologic correlation. . Sections of the rectal polyp biopsy reveal a hyperplastic polyp. (JPM/db; 02/13/2022) . Special stains performed: Immunoperoxidase stain for Helicobacter on B1 . 02 Electronically signed: . Eugene Murphy MD, Pathologist NPI- [id number] . 01 Gross description: . A. The specimen is received in formalin, labeled "Bernal, Jacqueline, small bowel BX". Received are 3 segments of pale schulz tissue ranging in size from 0.3 to 0.4 cm in maximum dimensions. The specimen is submitted entirely in cassette A1. . B. The specimen is received in formalin, labeled "Bernal, Jacqueline, antrum and body BX". Received are 4 segments of pale schulz tissue ranging in size from 0.3 to 0.6 cm in maximum dimensions. The specimen is submitted entirely in cassette B1. . C. The specimen is received in formalin, labeled "Bernal, Jacqueline, distal esophagus BX". Received are 3 segments of pale schulz tissue ranging in size from 0.3 to 0.4 cm in maximum dimensions. The specimen is submitted entirely in cassette C1. . D. The specimen is received in formalin, labeled "Bernal, Jacqueline, descending colon polyp". Received is a segment of pale schulz tissue measuring 0.3 cm in maximum dimensions. The specimen is submitted entirely in cassette D1. . E. The specimen is received in formalin, labeled "Bernal, Jacqueline, cecal polyp". Received are 4 segments of pale schulz tissue ranging in size from 0.2 cm to 0.4 cm in maximum dimensions. The specimen is submitted entirely in cassette E1. . F. The specimen is received in formalin, labeled "Bernal, Jacqueline, right colon BX". Received are four segments of pale schulz tissue ranging in size from 0.3 to 0.4 cm in maximum dimensions. The specimen is submitted entirely in cassette F1. . G. The specimen is received in formalin, labeled "Bernal, Jacqueline, transverse colon polyp". Received are 2 segments of pale schulz tissue ranging in size from 0.3 to 0.5 cm in maximum dimensions. The specimen is submitted entirely in cassette G1. . H. The specimen is received in formalin, labeled "Bernal, Jacqueline, left colon BX". Received are multiple segments of pale schulz tissue ranging in size from 0.2 cm to 0.7 cm in maximum dimensions. The specimen is submitted entirely in cassette H1. . I. The specimen is received in formalin, labeled "Bernal, Jacqueline, rectal polyp". Received is a segment of pale schulz tissue measuring 0.3 cm in maximum dimensions. The specimen is submitted entirely in cassette I1.([facility]; 02/12/2022) [facility] 02/13/2022 1632 Local . 02 Pathologist provided ICD-10: K29.50, K31.89, K21.9, K52.9, D12.0, K62.1, K62.89 . 02 CPT . 668265, 131671, 687449, 421631, 059987, 888647, 362171, [id number], [id number], [id number] Specimen Comment: A courtesy copy of this report has been sent to [phone], [phone] Specimen Comment: [id number] Specimen Comment: Report sent to / DR CATHERINE Specimen Comment: A duplicate report has been generated due to demographic updates. Performed at: 01 [facility] [address], [place], [place] [id number] MD Moose Goodman MD Phone: [phone] Performed at: 02 [facility] [address] [place], [place] [id number] MD Eugene Murphy MD Phone: [phone]
== END | disposition home or self-care (01) ==
LOC: ENDOS 08:59
PROVIDERS: ATTEND Internal Medicine Gastroenterology
DX: K52.9 Noninfective gastroenteritis and colitis, unspecified (principal); D12.0 Benign neoplasm of cecum; K29.50 Unspecified chronic gastritis without bleeding; K63.89 Other specified diseases of intestine; K31.89 Other diseases of stomach and duodenum; R10.11 Right upper quadrant pain; K21.00 Gastro-esophageal reflux disease with esophagitis, without bleeding; K64.0 First degree hemorrhoids; M19.90 Unspecified osteoarthritis, unspecified site; F41.9 Anxiety disorder, unspecified; Z79.899 Other long term (current) drug therapy; Z98.890 Other specified postprocedural states; Z88.5 Allergy status to narcotic agent; Z88.8 Allergy status to other drugs, medicaments and biological substances
CPT/HCPCS: 43239; 45380; 88305; 88342; J2704; 45384